=== PATIENT | female | born 1980 | race Hispanic/Latino ===

== ENCOUNTER 2019-12-24 12:38 | Emergency (ER) | payer SELFPAY ==
[2019-12-24 13:17] LABS: Absolute Lymphocytes (CBC) 1.8 K/uL (0.7-4.9); Basophils % 0.4 % (0-1.3); Lymphocytes % 24.2 % (15.3-44.8); MPV 8.1 fL (7.6-11.3)
[2019-12-24] MEDS ORDERED: NA CHLORIDE 0.9% 1,000 ML ONE (13:23)
[2019-12-24 13:33] LABS: ALT/SGPT 26 U/L (12-78); AST/SGOT 21 U/L (15-37); Albumin 3.8 g/dL (3.4-5.0); Alkaline Phosphatase 75 U/L (45-117); BUN Blood Urea Nitrogen 20 mg/dL (7-18); Bicarbonate 23 mmol/L (21-32); Bilirubin Direct < 0.1 mg/dL (0-0.2); Bilirubin Total 0.4 mg/dL (0.2-1.0); Glucose Level 134 mg/dL (74-106); Lipase 148 U/L (73-393); Potassium 3.8 mmol/L (3.5-5.1); Sodium Level 141 mmol/L (136-145)
--- NOTE | 2019-12-24 13:45 | RAD REPORT ---
EXAM DESCRIPTION: US - Abdomen Exam Limited - 12/24/2019 1:24 pm CLINICAL HISTORY: ABD PAIN COMPARISON: No comparisons FINDINGS: Multiple large gallstones are present within a normal-sized gallbladder. No wall thickenin g or pericholecystic fluid. No common duct stone or biliary tree dilatation identified. IMPRESSION: Multi stone cholelithiasis without other findings of acute gallbladder or biliary tree d isease.
[2019-12-24] MEDS ORDERED: ONDANSETRON 4 MG/2 ML VIAL ONE (13:47)
[2019-12-24] MEDS ORDERED: MORPHINE 4 MG/ML SYR ONE (13:47)
[2019-12-24] MEDS ORDERED: FAMOTIDINE 20 MG/2 ML VIAL IV ONE (13:48)
--- NOTE | 2019-12-24 13:59 | ER ---
Nurse's Notes [facility] Name: Mikayla Ervin Age: 39 yrs Sex: Female : 1980 Arrival Date: 12/24/2019 Time: 12:40 Bed 23 Private MD: Diagnosis: Cholelithiasis Presentation: 12/23 12:53 Chief complaint: Patient states: sharp, epigastric pain that radiates towards back that ss began this morning. Similar episode has occurred before and was told in the past it was gastritis. This is the worse the pain has ever been. Coronavirus screen: Client denies travel out of the [place] in the last 14 days. At this time, the client does not indicate any symptoms associated with coronavirus-19. Ebola Screen: Patient denies exposure to infectious person. Patient denies travel to an Ebola-affected area in the 21 days before illness onset. Initial Sepsis Screen: Does the patient meet any 2 criteria? No. Patient's initial sepsis screen is negative. Does the patient have a suspected source of infection? No. Patient's initial sepsis screen is negative. Risk Assessment: Do you want to hurt yourself or someone else? Patient reports no desire to harm self or others. Onset of symptoms was December 24, 2019. 12:53 Method Of Arrival: Ambulatory ss 12:53 Acuity: BRADLEY 3 ss Triage Assessment: 12:45 General: Appears uncomfortable, Behavior is cooperative. ls4 12:45 Pain: Complains of pain in epigastric area Pain radiates to back Pain currently is 9 ls4 out of 10 on a pain scale. Quality of pain is described as crampy. GI: Abdomen is non-distended, obese, Last BM was December 24, 2019. Last meal was December 24, 2019. Bowel sounds present X 4 quads. Abd is soft and non tender X 4 quads. Abdomen is tender to palpation in epigastric area Abdomen has rebound tenderness Reports Patient currently denies diarrhea, intolerance of fluids, intolerance of food, nausea, vomiting. Historical: - Allergies: 12:57 No Known Allergies; ss - Home Meds: 12:57 None [Active]; ss - PMHx: 12:57 None; ss - PSHx: 12:57 Hysterectomy; ss - Immunization history:: Adult Immunizations up to date. - Social history:: Smoking status: Patient denies any tobacco usage or history of. Screenin:45 Abuse screen: Denies threats or abuse. Denies injuries from another. Nutritional ls4 screening: No deficits noted. Tuberculosis screening: No symptoms or risk factors identified. Fall Risk None identified. Vital Signs: 12:53 BP 157 / 91; Pulse 71; Resp 20; Temp 97.8(TE); Pulse Ox 100% on R/A; Weight 91.17 kg; ss Height 5 ft. 1 in. (154.94 cm); Pain 10/10; 12:53 Body Mass Index 37.98 (91.17 kg, 154.94 cm) ss ED Course: 12:40 Patient arrived in ED. mr 12:43 Leonela Ball, [facility]. kb 12:43 Mario Genao MD is Attending Physician. kb 12:45 Patient has correct armband on for positive identification. Bed in low position. Call ls4 light in reach. Side rails up X 1. warehouse driver on. Pulse ox on. NIBP on. Warm blanket given. Verbal reassurance given. Diet: Patient is NPO. 12:56 Triage completed. ss 12:57 Arm band placed on right wrist. ss 13:15 No provider procedures requiring assistance completed. Initial lab(s) drawn, by ar, ls4 sent to lab. Urine collected: clean catch specimen, cloudy. Inserted saline lock: 20 gauge in left antecubital area, using aseptic technique. Blood collected. Patient maintains SpO2 saturation greater than 95% on room air. 13:24 US Abdomen Limited In Process Unspecified. EDMS 13:32 Darya Pulido, RN is Primary Nurse. ls4 13:33 Basic Metabolic Panel Sent. ls4 Administered Medications: 13:43 Drug: morphine 4 mg Route: IVP; Site: left antecubital; ls4 13:43 Drug: Zofran (Ondansetron) 4 mg Route: IVP; Site: left antecubital; ls4 13:43 Drug: NS 0.9% 1000 ml Route: IV; Rate: 1000 ml; Site: left antecubital; ls4 13:43 Drug: Pepcid 20 mg Route: IVP; Site: left antecubital; ls4 Outcome: 13:58 Discharge ordered by . kb 14:24 Patient left the ED. ls4 Signatures: Dispatcher [employer] Leonela Hernandez, WEB SITE DESIGNER-C WEB SITE DESIGNER-Kassy Cox mr Marie Andres, RN RN Darya Murdock RN RN ls4
--- NOTE | 2019-12-24 13:59 | EDPHYS ---
Physician Documentation [facility] Name: [facility] Sarikafrank Valero Age: 39 yrs Sex: Female : 1980 Arrival Date: 12/24/2019 Time: 12:40 Bed 23 Private MD: GAYE Physician Mario Genao HPI: 12/23 13:56 This 39 yrs old Female presents to ER via Ambulatory with complaints of kb Abdominal Pain, Back Pain. 13:56 The patient presents with abdominal pain in the epigastric area. Onset: The kb symptoms/episode began/occurred this morning. The symptoms radiate to back. Associated signs and symptoms: none. The symptoms are described as constant. Modifying factors: The symptoms are alleviated by nothing, the symptoms are aggravated by food. Severity of pain: At its worst the pain was moderate in the emergency department the pain is unchanged. The patient has experienced similar episodes in the past, a few times. The patient has not recently seen a physician. Pt reports upper abd pain that radiates to her back. STates she has had it a few times in the past and the [facility] told her it was gastritis. . Historical: - Allergies: 12:57 No Known Allergies; ss - Home Meds: 12:57 None [Active]; ss - PMHx: 12:57 None; ss - PSHx: 12:57 Hysterectomy; ss - Immunization history:: Adult Immunizations up to date. - Social history:: Smoking status: Patient denies any tobacco usage or history of. ROS: 13:56 Constitutional: Negative for fever, chills, and weight loss, Cardiovascular: Negative kb for chest pain, palpitations, and edema, Respiratory: Negative for shortness of breath, cough, wheezing, and pleuritic chest pain, Back: Negative for injury and pain, MS/Extremity: Negative for injury and deformity, Skin: Negative for injury, rash, and discoloration, Neuro: Negative for headache, weakness, numbness, tingling, and seizure. 13:56 Abdomen/GI: Positive for abdominal pain, Negative for nausea, vomiting, and diarrhea. Exam: 13:56 Constitutional: This is a well developed, well nourished patient who is awake, alert, kb and in no acute distress. Head/Face: Normocephalic, atraumatic. Chest/axilla: Normal chest wall appearance and motion. Nontender with no deformity. No lesions are appreciated. Cardiovascular: Regular rate and rhythm with a normal S1 and S2. No gallops, murmurs, or rubs. Normal PMI, no JVD. No pulse deficits. Respiratory: Lungs have equal breath sounds bilaterally, clear to auscultation and percussion. No rales, rhonchi or wheezes noted. No increased work of breathing, no retractions or nasal flaring. Back: No spinal tenderness. No costovertebral tenderness. Full range of motion. Skin: Warm, dry with normal turgor. Normal color with no rashes, no lesions, and no evidence of cellulitis. MS/ Extremity: Pulses equal, no cyanosis. Neurovascular intact. Full, normal range of motion. Neuro: Awake and alert, GCS 15, oriented to person, place, time, and situation. Cranial nerves II-XII grossly intact. Motor strength 5/5 in all extremities. Sensory grossly intact. Cerebellar exam normal. Normal gait. 13:56 Abdomen/GI: Inspection: abdomen appears normal, Bowel sounds: normal, in all quadrants, Palpation: soft, in all quadrants, moderate abdominal tenderness, in the right upper quadrant. Vital Signs: 12:53 BP 157 / 91; Pulse 71; Resp 20; Temp 97.8(TE); Pulse Ox 100% on R/A; Weight 91.17 kg; ss Height 5 ft. 1 in. (154.94 cm); Pain 10/10; 12:53 Body Mass Index 37.98 (91.17 kg, 154.94 cm) ss MDM: 12:43 Patient medically screened. kb 13:55 Data reviewed: vital signs, nurses notes. Data interpreted: Pulse oximetry: on room air kb is 100 %. Interpretation: normal. Counseling: I had a detailed discussion with the patient and/or guardian regarding: the historical points, exam findings, and any diagnostic results supporting the discharge/admit diagnosis, lab results, radiology results, the need for outpatient follow up, a general surgeon, a family development specialist, to return to the emergency department if symptoms worsen or persist or if there are any questions or concerns that arise at home. 12/23 12:50 Order name: Basic Metabolic Panel kb 12/23 12:50 Order name: CBC with Diff; Complete Time: 13:22 kb 12/23 12:50 Order name: Hepatic Function; Complete Time: 13:33 kb 12/23 12:50 Order name: Lipase; Complete Time: 13:33 kb 12/23 12:51 Order name: Basic Metabolic Panel; Complete Time: 13:33 EDMS 12/23 13:58 Order name: Urine Dipstick--Ancillary (enter results) eb 12/23 12:50 Order name: IV Saline Lock; Complete Time: 13:33 kb 12/23 12:50 Order name: Labs collected and sent; Complete Time: 13:33 kb 12/23 12:50 Order name: US Abdomen Limited; Complete Time: 13:47 kb 12/23 13:58 Order name: Urine --Ancillary (enter results) eb Administered Medications: 13:43 Drug: morphine 4 mg Route: IVP; Site: left antecubital; ls4 13:43 Drug: Zofran (Ondansetron) 4 mg Route: IVP; Site: left antecubital; ls4 13:43 Drug: NS 0.9% 1000 ml Route: IV; Rate: 1000 ml; Site: left antecubital; ls4 13:43 Drug: Pepcid 20 mg Route: IVP; Site: left antecubital; ls4 Disposition: 12/24 10:52 Co-signature as Attending Physician, Mario Genao MD I agree with the assessment and elias plan of care. Disposition: 12/24/19 13:58 Discharged to Home. Impression: Cholelithiasis. - Condition is Stable. - Discharge Instructions: Cholelithiasis, [id number]. - Prescriptions for Bentyl 20 mg Oral Tablet - take 1 tablet by ORAL route every 6 hours As needed; 20 tablet. Zofran 4 mg Oral Tablet - take 1 tablet by ORAL route every 6 hours As needed; 20 tablet. Diclofenac Sodium 75 mg Oral Tablet, Delayed Release (E.C.) - take 1 tablet by ORAL route 2 times per day As needed; 30 tablet. - Medication Reconciliation Form, Thank You Letter, Antibiotic Education, Prescription Opioid Use form. - Follow up: Emergency Department; When: As needed; Reason: Worsening of condition. Follow up: Private Physician; When: 2 - 3 days; Reason: Recheck today's complaints, Continuance of care, Re-evaluation by your physician. Signatures: Dispatcher [employer] Leonela Hernandez, WEB MARKETING COORDINATOR-C WEB MARKETING COORDINATOR-Ckb Mario Genao MD MD cha Smirch, Shelby, RN RN ss Darya Pulido, RN RN ls4 Corrections: (The following items were deleted from the chart) 12/23 14:24 13:58 12/24/2019 13:58 Discharged to Home. Impression: Cholelithiasis. Condition is ls4 Stable. Forms are Medication Reconciliation Form, Thank You Letter, Antibiotic Education, Prescription Opioid Use. Follow up: Emergency Department; When: As needed; Reason: Worsening of condition. Follow up: Private Physician; When: 2 - 3 days; Reason: Recheck today's complaints, Continuance of care, Re-evaluation by your physician. kb
[2019-12-24 14:36] VITALS: BP 157/91; TEMP 97.8; O2SAT 100
[2019-12-24 14:47] LABS: Urine Blood 2+ (NEG); Urine Glucose NEGATIVE (NEG); Urine Protein TRACE (NEG)
== END 2019-12-24 14:24 | disposition home or self-care (01) ==
LOC: ER 12:38
DX: K80.20 Calculus of gallbladder without cholecystitis without obstruction (principal)
CPT/HCPCS: 36415; 76705; 80048; 80076; 81003; 81025; 83690; 85025; 96374; 96375; 99285; J2405; J7030

== ENCOUNTER 2020-04-22 13:12 | Inpatient (IN) | payer SELFPAY ==
--- OUTSIDE RECORDS SUMMARY | 2020-04-22 13:14 | XMS REPORT | Continuity of Care Document ---
:1980 Author Organization [facility] t Address [address] [place] [address] Care Team Providers Name Role Phone Kassy Whitaker RN Attending Clinician Gautam Stauffer Attending Clinician Shant Attending Clinician Banipamode Morrical DO Attending Clinician Shante EISENBERG R Attending Clinician Lab, Fam Pob I Attending Clinician Unavailable Shante EISENBERG, R Admitting Clinician Payers Payer Name Policy Type Policy Number Effective Date Expiration Date S ource Problems This patient has no known problems. Allergies, Adverse Reactions, Alerts Allergy Allergy Status Severity Reaction(s) Onset Inactive Treating Comm ents Source Name Type Date Date Clinician No Known DA Active [facility] Allergie 4-20 Clear s 00:00: [place] 00 [facility] Medications This patient has no known medications. Procedures This patient has no known procedures. Encounters Start End Encounter Admission Attending Care Care Encounter Source Date/Time Date/Time Type Type Clinicians Facility Department ID 2020-02-02 2020-02-02 Patient Kassy Whitaker [id number] 00:00:00 00:00:00 Outreach E Ochoa [id number] [place] [id number] 2020-01-04 2020-01-04 Patient Donna Stauffer [id number] 00:00:00 00:00:00 Outreach Thao E Ochoa [id number] [place] [id number] 2019-12-31 2019-12-31 Transition BranDonna sims [id number] 00:00:00 00:00:00 of Care Lakesha Ochoa [id number] [place] [id number] 2019-12-30 2019-12-30 Transition Donna Bran [id number] 00:00:00 00:00:00 of Care Lakesha Ochoa [id number] [place] [id number] 2019-12-25 2019-12-28 Hospital Kelin Curry [id number] 13:12:00 14:45:00 Encounter Zheng Frey [id number] [facility] [id number] 2019-10-10 2019-10-10 Work Checker Lab, [facility] [id number] 14:00:41 14:20:41 Visit [facility] [id number] [place] [id number] Professio [phone] [address]al [address] One Results This patient has no known results.
--- OUTSIDE RECORDS SUMMARY | 2020-04-22 13:14 | XMS REPORT | Summary of Care ---
:1980 Author Organization [facility] - [address] [address] Care Team Providers Name Role Phone Pcp, Patient Does Not Have A Primary Care Provider +[id number] 0-0000 Pcp, Does Not Have A Unavailable Pcp, Does Not Have A Insurance Hmo Reason for Visit Reason Comments Referral/consult [facility] Referral Encounter Details Date Type Department Care Team Description 02/02/2020 Patient Outreach [facility] Kassy Whitaker RN Referral/consult [address] ([facility] Refer ral) [place], [place] [address] Allergies No Known Allergiesdocumented as of this encounter (statuses as of 02/02/2020) Medications Medication Sig Dispensed Refills Start Date End Date Status CALCIUM Take by mouth. 0 Acti ve CARBONATE/VITAMIN D2 (CALCIUM + VITAMIN D ORAL) acetaminophen-codeine Take 1 tablet by 10 tablet 0 01/17/2017 Active (TYLENOL-CODEINE #3) mouth every 8 300-30 mg tablet (eight) hours. ondansetron (ZOFRAN Take 1 tablet by 40 tablet 0 12/28/2019 Active ODT) 4 mg mouth every 8 disintegrating (eight) hours as tabletIndications: needed for Nausea Abdominal pain, and Vomiting unspecified abdominal (N/V). location, Transaminitis, Cholelithiasis without cholecystitis acetaminophen (TYLENOL Take 1 tablet by 40 tablet 0 12/28/2019 Active 8 HOUR) 650 mg CR mouth every 8 tabletIndications: (eight) hours as Abdominal pain, needed for Pain. unspecified abdominal location, Transaminitis, Cholelithiasis without cholecystitis Hospital, Clinic, or Other Ordered Dose Route Frequency Start Date End Date Status Facility Administered Medication medroxyPROGESTERone 150 mg IM [id number] 01/25/2017 Active (DEPO-PROVERA) injection 150 mgIndications: Depo-Provera contraceptive status documented as of this encounter (statuses as of 02/02/2020) Active Problems Problem Noted Date Transaminitis 12/28/2019 Cholelithiasis without cholecystitis 12/25/2019 Pain of upper abdomen 12/25/2019 Nausea 12/25/2019 Screen for STD (sexually transmitted disease) 01/26/20 17 Obesity (BMI 30-39.9) 01/25/2017 Nevus of female breast 11/04/2015 General counseling and advice for contraceptive manage ment 11/04/2014 Overview: ICD10 Diagnosis Term Roll Trucker Utility Excessive or frequent menstruation 07/30/2012 Well woman exam 07/30/2012 Congenital anomaly of uterus Overview: ICD10 Diagnosis Term Roll Trucker Utility documented as of this encounter (statuses as of 02/02/2020) Resolved Problems Problem Noted Date Resolved Date Obesity 11/04/2014 01/25/2017 Overview: ICD10 Diagnosis Term Roll Trucker Utility delivery delivered 06/04/2007 07/30/2012 Overview: ICD10 Diagnosis Term Roll Trucker Utility Morbid obesity 01/25/2017 Supervision of other high-risk 07/30/2012 Overview: ICD10 Diagnosis Term Roll Trucker Utility Previous delivery, antepartum condition or complica tion 07/30/2012 documented as of this encounter (statuses as of 02/02/2020) Social History Tobacco Use Types Packs/Day Years Used Date Never Smoker Smokeless Tobacco: Never Used Alcohol Use Drinks/Week oz/Week Comments No Education Answer Date Recorded What is the highest level of school you have completed or th e 6th grade 12/25/2019 highest degree you have received? Financial Resource Strain Answer Date Recorded How hard is it for you to pay for the very basics like Not h glenny at all 12/25/2019 food, housing, medical care, and heating? Food Insecurity Answer Date Recorded Within the past 12 months, you worried that your food would Never true 12/25/2019 run out before you got money to buy more. Within the past 12 months, the food you bought just didn't N ever true 12/25/2019 last and you didn't have money to get more. Sex Assigned at Date Recorded Not on file documented as of this encounter Last Filed Vital Signs Not on filedocumented in this encounter Progress Notes Kassy Whitaker RN - 02/02/2020 1:28 PM CDTCHP Referral 39 year old female with no pertinent PMH admitted for worsening abdominal pain. Found to have elevated liver enzymes. Evaluated by general surgery, determined stable for an elective outpatient cholecystitis. Pt was seen by GI, and MRCP showed cholelithiasis with no evidence of choledocholithiasis. Patient LFTs down trending, will f/u GI outpatient. Patient. Voices that she needs education on diagnosis and medical resources for future. Pt. Agreed to participate in [facility]. Thank you, Lakesha Bran. CHARGING CAR OPERATOR [facility]P CHW attempted to contact patient re: [facility]P enrollment; not able to contact patient. DHARA Flores, RN, [facility] Outpatient Cap Parts CutterCutting Table Operator [facility] O: [phone] M: [phone] documented in this encounter Plan of Treatment Health Maintenance Due Date Last Done Comments Depression Screening 1990 DTaP,Tdap,and Td Vaccines 1997 (1 - Tdap) Breast Cancer Screening 2018 (MAMMOGRAM) PAP SMEAR 11/03/2018 11/04/2015, 07/30/2012, 10/22/2008, Additional history exists INFLUENZA VACCINE (#1) 2020 PNEUMOCOCCAL 0-64 YEARS Aged Out No longe r eligible COMBINED SERIES based on patient 's age to complete this topic documented as of this encounter Results Not on filedocumented in this encounter Insurance Payer Benefit Plan / Subscriber ID Effective Dates Phone Addre ss Type Group [facility] FAMILY FAMILY PLANNING [id number] 2017-[employer] PLANNING JOSE GUADALUPE JOSE [place]UPE [phone] nt [id number] [place] [address] documented as of this encounter Advance Directives Type Date Recorded 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
[2020-04-22] MEDS ORDERED: ONDANSETRON 4 MG/2 ML VIAL ONE (15:32)
[2020-04-22] MEDS ORDERED: NA CHLORIDE 0.9% 1,000 ML ONE (15:32)
--- NOTE | 2020-04-22 15:38 | ER ---
Nurse's Notes [facility] Name: Mikayla Ervin Age: 39 yrs Sex: Female : 1980 Arrival Date: 04/22/2020 Time: 13:14 Bed 13 Private MD: Diagnosis: Cholelithiasis Presentation: 04/22 13:40 Chief complaint: Pt's daughter states "she saw Dr. Comer for her gallbladder today aa5 and told her to come here for surgery because he's field education director today; she was supposed to have the surgery on Saturday". Last meal was today at 1100. Pt reports nausea and vomiting, reports RUQ pain. Pt also reports headache. Pt reports she is currently taking Amoxicillin, clarithromycin, and omeprazole "for a bacteria that they found in my stomach". 13:40 Coronavirus screen: Client denies travel out of the [place] in the last 14 days. headache. aa5 Ebola Screen: Patient negative for fever greater than or equal to 101.5 degrees Fahrenheit, and additional compatible Ebola Virus Disease symptoms. Initial Sepsis Screen: Does the patient meet any 2 criteria? No. Patient's initial sepsis screen is negative. Does the patient have a suspected source of infection? No. Patient's initial sepsis screen is negative. Risk Assessment: Do you want to hurt yourself or someone else? Patient reports no desire to harm self or others. Onset of symptoms was April 2020. 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 - Social history:: Smoking status: Patient denies any tobacco usage or history of. Screenin:30 Abuse screen: Denies threats or abuse. Denies injuries from another. Nutritional sv screening: No deficits noted. Tuberculosis screening: No symptoms or risk factors identified. Fall Risk None identified. Assessment: 15:25 General: Appears in no apparent distress. uncomfortable, well groomed, well developed, sv Behavior is calm, cooperative, appropriate for age. Pain: Complains of pain in epigastric area Pain currently is 10 out of 10 on a pain scale. Neuro: Level of Consciousness is awake, alert, obeys commands, Oriented to person, place, time, situation, Moves all extremities. Full function Gait is steady. Respiratory: Respiratory effort is even, unlabored, Respiratory pattern is regular, symmetrical. GI: Abdomen is obese, Reports nausea. Derm: Skin is pink, warm \\T\\ dry. 16:43 Reassessment: Patient appears in no apparent distress at this time. No changes from sv previously documented assessment. Patient and/or family updated on plan of care and expected duration. Pain level reassessed. Patient is alert, oriented x 3, equal unlabored respirations, skin warm/dry/pink. 17:41 Reassessment: Patient appears in no apparent distress at this time. Patient and/or sv family updated on plan of care and expected duration. Pain level reassessed. Patient is alert, oriented x 3, equal unlabored respirations, skin warm/dry/pink. Patient states symptoms have improved. Vital Signs: 13:42 BP 145 / 100; Pulse 67; Resp 18 S; Temp 98.5(O); Pulse Ox 100% on R/A; Weight 95.25 kg aa5 (R); Height 5 ft. 4 in. (162.56 cm) (R); Pain 10/10; 17:43 BP 120 / 77; Pulse 63; Resp 16; Pulse Ox 100% ; sv 13:42 Body Mass Index 36.05 (95.25 kg, 162.56 cm) aa5 ED Course: 13:14 Patient arrived in ED. rg4 13:25 Mario Caceres PA is PHCP. cp 13:25 Telly Trotter MD is Attending Physician. cp 13:26 Telly Trotter MD is Attending Physician. cp 13:40 Arm band placed on. aa5 13:53 Triage completed. aa5 15:12 Oriana Santos, KATHARINE is Primary Nurse. sv 15:30 Patient has correct armband on for positive identification. Placed in gown. Bed in low sv position. Call light in reach. Adult w/ patient. Door closed. Warm blanket given. Head of bed elevated. 15:30 Inserted saline lock: 22 gauge in left forearm, using aseptic technique. ,using aseptic sv technique. diffusics Flushed left forearm with 5 ml normal saline. 15:37 Jose Comer MD is Hospitalizing Provider. cp 16:43 COVID swab sent to lab. sv 16:44 COVID-19: in house testing please Sent. sv 16:56 Awaiting bed assignment. sv 17:35 CORONAVIRUS Sent. sv 17:41 No provider procedures requiring assistance completed. Patient admitted, IV remains in sv place. intact. Administered Medications: 15:37 Drug: NS 0.9% 1000 ml Route: IV; Rate: 125 ml/hr; Site: left forearm; sv 17:44 Follow up: Response: No adverse reaction; IV Status: Infusion continued upon admission sv 15:37 Drug: Zofran (Ondansetron) 4 mg Route: IVP; Site: left forearm; sv 16:15 Follow up: Response: No adverse reaction sv 15:59 CANCELLED (Physician Discretion): morphine 2 mg IVP once; (PAIN>8) RASS on ADMN: cp Combtv4, Very Agttd3, Agttd2, Rstlss1, AlertClm0, Drwsy-1, LtSdtn-2, ModSdtn-3, DpSdtn-4, UnArsble-5 x2 16:14 Drug: Diazepam 5 mg Route: PO; sv 17:35 Follow up: Response: No adverse reaction sv 16:15 Drug: morphine 4 mg {Note: rass1.} Route: IVP; Site: left forearm; sv 17:35 Follow up: Response: No adverse reaction; Pain is decreased; RASS: Alert and Calm (0) sv Outcome: 15:37 Decision to Hospitalize by Provider. cp 17:41 Admitted to Med/surg accompanied by tech, family with patient, via wheelchair, room sv 215, with chart, Report called to MECCA RN 17:41 Condition: stable 17:41 Instructed on the need for admit. 17:53 Patient left the ED. sv Signatures: Oriana Santos RN RN Susan Skelton RN RN aa5 Mario Caceres PA PA cp Garcia, Rubi rg4 Corrections: (The following items were deleted from the chart) 13:53 13:47 Chief complaint: Pt's daughter states "she saw Dr. Comer for her gallbladder aa5 today and told her to come here for surgery because he's field education director today; she was supposed to have the surgery on Saturday". Last meal was today at 1100. Pt reports nausea and vomiting, reports RUQ pain. Pt also reports headache. aa5 17:42 17:41 Admitted to Med/surg accompanied by daisy, family with patient, via wheelchair, sv room 217, with chart, Report called to MECCA eric
--- NOTE | 2020-04-22 15:38 | EDPHYS ---
Physician Documentation [facility] Name: [facility] Sarikafrank Valero Age: 39 yrs Sex: Female : 1980 Arrival Date: 04/22/2020 Time: 13:14 Bed 13 Private MD: ED Physician Telly Trotter HPI: 04/22 15:22 This 39 yrs old Female presents to ER via Ambulatory with complaints of cp Abdominal Pain. 15:22 The patient presents with abdominal pain in the epigastric area, in the right upper cp quadrant. Onset: The symptoms/episode began/occurred gradually, and became worse today. Associated signs and symptoms: Pertinent positives: nausea. Severity of pain: in the emergency department the pain is unchanged despite home interventions. POSTIE: 15:25 LMP N/A - Hysterectomy sv Historical: - Allergies: 13:40 No Known Allergies; aa5 - PMHx: 13:40 None; aa5 - PSHx: 13:40 Hysterectomy; aa5 - Immunization history:: Adult Immunizations unknown. - Social history:: Smoking status: Patient denies any tobacco usage or history of. ROS: 15:24 Eyes: Negative for injury, pain, redness, and discharge. cp 15:24 Constitutional: Negative for fever, poor PO intake. 15:24 ENT: Negative for ear pain, sore throat, difficulty swallowing, difficulty handling secretions. 15:24 Respiratory: Negative for cough, shortness of breath, wheezing. 15:24 Abdomen/GI: Positive for abdominal pain, nausea, of the epigastric area and right upper quadrant, Negative for vomiting, diarrhea, constipation. 15:24 Neuro: Negative for altered mental status, headache, weakness. 15:24 All other systems are negative. Exam: 15:30 Constitutional: The patient appears in no acute distress, alert, awake, non-toxic, well cp developed, well nourished, uncomfortable. 15:30 Head/Face: Normocephalic, atraumatic. cp 15:30 Eyes: Periorbital structures: appear normal, Conjunctiva: normal, no exudate, no injection, Sclera: no appreciated abnormality, Lids and lashes: appear normal, bilaterally. 15:30 ENT: External ear(s): are unremarkable, Nose: is normal, Posterior pharynx: Airway: no evidence of obstruction, patent. 15:30 Chest/axilla: Inspection: normal. 15:30 Cardiovascular: Rate: normal, Rhythm: regular. 15:30 Respiratory: the patient does not display signs of respiratory distress, Respirations: normal, no use of accessory muscles, no retractions, labored breathing, is not present, Breath sounds: are clear throughout, no decreased breath sounds. 15:30 Abdomen/GI: Inspection: abdomen appears normal, Bowel sounds: active, all quadrants, Palpation: soft, in all quadrants, moderate abdominal tenderness, in the epigastric area and right upper quadrant, rebound tenderness, is not appreciated, voluntary guarding, is elicited in the epigastric area and right upper quadrant. 15:30 Neuro: Orientation: to person, place \T\ time. Mentation: is normal. Vital Signs: 13:42 BP 145 / 100; Pulse 67; Resp 18 S; Temp 98.5(O); Pulse Ox 100% on R/A; Weight 95.25 kg aa5 (R); Height 5 ft. 4 in. (162.56 cm) (R); Pain 10/10; 17:43 BP 120 / 77; Pulse 63; Resp 16; Pulse Ox 100% ; sv 13:42 Body Mass Index 36.05 (95.25 kg, 162.56 cm) aa5 MDM: 15:08 Patient medically screened. cp 15:09 Physician consultation: Jose Comer MD was contacted at 15:09, requests patient be cp admitted to his service for cholecystectomy. 15:35 Data reviewed: vital signs, nurses notes, and as a result, I will admit patient. cp 15:35 Differential diagnosis: cholecystitis, gastritis, pancreatitis, Pyelonephritis, cp Ureterolithiasis, urinary tract infection. Counseling: I had a detailed discussion with the patient and/or guardian regarding: the historical points, exam findings, and any diagnostic results supporting the discharge/admit diagnosis, the need for further work-up and treatment in the hospital. 04/22 16:16 Order name: COVID-19: in house testing please cp 04/22 17:04 Order name: CORONAVIRUS EDMS 04/22 15:09 Order name: IV; Complete Time: 15:37 cp Administered Medications: 15:37 Drug: NS 0.9% 1000 ml Route: IV; Rate: 125 ml/hr; Site: left forearm; sv 17:44 Follow up: Response: No adverse reaction; IV Status: Infusion continued upon admission sv 15:37 Drug: Zofran (Ondansetron) 4 mg Route: IVP; Site: left forearm; sv 16:15 Follow up: Response: No adverse reaction sv 15:59 CANCELLED (Physician Discretion): morphine 2 mg IVP once; (PAIN>8) RASS on ADMN: cp Combtv4, Very Agttd3, Agttd2, Rstlss1, AlertClm0, Drwsy-1, LtSdtn-2, ModSdtn-3, DpSdtn-4, UnArsble-5 x2 16:14 Drug: Diazepam 5 mg Route: PO; sv 17:35 Follow up: Response: No adverse reaction sv 16:15 Drug: morphine 4 mg {Note: rass1.} Route: IVP; Site: left forearm; sv 17:35 Follow up: Response: No adverse reaction; Pain is decreased; RASS: Alert and Calm (0) sv Disposition: 18:29 Co-signature as Attending Physician, Telly Trotter MD I agree with the assessment and kdr plan of care. Disposition: 20 15:37 Hospitalization ordered by Jose Comer for Observation. Preliminary diagnosis is Cholelithiasis. - Bed requested for Telemetry/MedSurg (observation). - Status is Observation. sv - Condition is Stable. - Problem is an ongoing problem. - Symptoms have improved. Signatures: Dispatcher [employer] Oriana Raman RN RN Abbie Junior RN RN dw Rittger, Kevin, MD MD [facility] Susan Skelton RN RN aa5 Mario Caceres PA PA cp Corrections: (The following items were deleted from the chart) 15:13 15:09 Urine Test ordered. cp sv 15:14 15:09 Urine Dipstick-Ancillary ordered. cp sv 15:59 15:55 morphine 2 mg IVP once; (PAIN>8) RASS on ADMN: Combtv4, Very Agttd3, Agttd2, cp Rstlss1, AlertClm0, Drwsy-1, LtSdtn-2, ModSdtn-3, DpSdtn-4, UnArsble-5 x2 ordered. cp 17:09 15:37 Hospitalization Ordered by Jose Comer MD for Observation. Preliminary dw diagnosis is Cholelithiasis. Bed requested for Telemetry/MedSurg (observation). Status is Observation. Condition is Stable. Problem is an ongoing problem. Symptoms have improved. cp 17:53 17:09 04/22/2020 15:37 Hospitalization Ordered by Jose Comer MD for Observation. sv Preliminary diagnosis is Cholelithiasis. Bed requested for Telemetry/MedSurg (observation). Status is Observation. Condition is Stable. Problem is an ongoing problem. Symptoms have improved. dw
[2020-04-22] MEDS ORDERED: ACETAMINOPHEN 500 MG TAB PO PRN (16:05)
[2020-04-22] MEDS ORDERED: MORPHINE 4 MG/ML SYR IV PRN (16:05)
[2020-04-22] MEDS ORDERED: DIAZEPAM 5 MG TABLET PO PRN (16:07)
[2020-04-22] MEDS ORDERED: DIAZEPAM 5 MG TABLET ONE (16:20)
[2020-04-22] MEDS ORDERED: MORPHINE 4 MG/ML SYR ONE (16:20)
[2020-04-22 18:27] VITALS: BMI 35.2
[2020-04-22] MEDS ORDERED: ONDANSETRON 4 MG/2 ML VIAL IV PRN (19:34)
[2020-04-22] MEDS: D5.45NS W/KCL 20MEQ 20 MEQ/1,000 ML BAG IV SCH (20:20)
[2020-04-23] MEDS: D5.45NS W/KCL 20MEQ 20 MEQ/1,000 ML BAG IV SCH ×4 (05:06→20:00)
[2020-04-23 05:46] LABS: Absolute Lymphocytes (CBC) 1.5 K/uL (0.7-4.9); Basophils % 0.7 % (0-1.3); Lymphocytes % 25.2 % (15.3-44.8); MPV 7.6 fL (7.6-11.3); RBC Red Blood Cell Count 4.51 M/uL (3.86-4.86)
[2020-04-23 06:04] LABS: ALT/SGPT 24 U/L (12-78); AST/SGOT 15 U/L (15-37); Albumin 3.1 g/dL (3.4-5.0); Alkaline Phosphatase 78 U/L (45-117); BUN Blood Urea Nitrogen 12 mg/dL (7-18); Bicarbonate 26 mmol/L (21-32); Bilirubin Direct < 0.1 mg/dL (0-0.2); Bilirubin Total 0.3 mg/dL (0.2-1.0); Glucose Level 126 mg/dL (74-106); Lipase 163 U/L (73-393); Potassium 3.9 mmol/L (3.5-5.1); Protein, Total 7.1 g/dL (6.4-8.2); Sodium Level 141 mmol/L (136-145)
--- NOTE | 2020-04-23 08:06 | P.HP ---
Date of Service: 04/22/20 PC: This 39-year-old female presented with severe right upper quadrant abdominal pain to the ER. HPC: I see the patient in my office. She was actually going to have her surgery scheduled at another facility. On her drive there she experienced severe right upper quadrant abdominal pain, radiating into her back, the were she is ever had. She could barely sit in her car. When she arrived at the other facility they recommended that she go back to the emergency room for evaluation. She was able to get comfortable in the ER with some pain medicine, has been admitted, and will be taken to the operating room in the morning for laparoscopic cholecystectomy and cholangiogram. PMH: Otherwise healthy female PSHx: Previous hysterectomy SOC: No known allergies SYS REVIEW: No cough, wheeze, shortness of breath. No chest pain or palpitations. No urinary complaints O/E awake alert comfortable at the moment HEENT: The tear Chest: Chest movement equal bilaterally ABD: Mild right upper quadrant tenderness LOCO: Intact DATA: Has documented gallstones IMPRESSION: Cholecystitis with cholelithiasis, biliary colic PLAN: I will take her the operating room for laparoscopic possible open cholecystectomy. The risks of this procedure have been discussed. The possibility of bleeding, infection, injury to bile ducts blood vessels intestines has been described. The possible need for an open and/or further surgeries and procedures was discussed. She understands and wants us to proceed.
[2020-04-23] MEDS ORDERED: Ringers Lactate 1,000 ML IV ONE (08:53)
[2020-04-23] MEDS ORDERED: CEFOXITIN/SWI 1gm 1 GM/10 ML SYR ONE (09:21)
[2020-04-23] MEDS ORDERED: propofoL 200 MG/20 ML VIAL IV ONE (09:51)
[2020-04-23] MEDS ORDERED: ROCURONIUM 50 MG/5 ML VIAL IV ONE ×2 (09:52→10:59)
[2020-04-23] MEDS ORDERED: FENTANYL CITR 100 MCG/2 ML ONE (09:52)
[2020-04-23] MEDS ORDERED: LIDOCAINE 2% MPF 5 ML VIAL ONE (09:52)
[2020-04-23] MEDS ORDERED: dexAMETHasone 10 MG/ML VIAL ONE (10:50)
[2020-04-23] MEDS ORDERED: KETOROLAC 30 MG/ML INJ ONE (10:50)
[2020-04-23] MEDS ORDERED: ONDANSETRON 4 MG/2 ML VIAL ONE (10:51)
[2020-04-23] MEDS ORDERED: GLYCOPYRROLATE 0.2 MG/ML SYR ONE (11:04)
[2020-04-23] MEDS ORDERED: NEOSTIGMINE 1 MG/ML -5 ML ONE (11:05)
--- NOTE | 2020-04-23 11:30 | P.OP ---
Preoperative diagnosis: Cholecystitis with cholelithiasis, biliary colic Postoperative diagnosis: The same Primary procedure: Laparoscopic cholecystectomy Secondary procedure: Cholangiogram Other procedure(s): Nury blocked Anesthesia: General Estimated blood loss: Less than 10 cc Specimen: 1 gallbladder and contents Findings: Distended chronically inflamed gallbladder Operative Technique: The patient was brought to the operating room placed supine on the table. After the induction of adequate general endotracheal anesthesia, the area of the abdomen was prepped with a DuraPrep solution, and draped in the usual aseptic manner. A subumbilical incision was made. This brought down through the skin and subcutaneous tissue. The Visiport was used to enter the peritoneal cavity and created pneumoperitoneum to approximately 12 mm of mercury. Under direct vision a 5 mm trocar was placed in the upper midline, and 2 other 5 mm trocars on the right lateral side. The patient's head was then elevated and rolled towards the finishing room operator's side. We could see a distended and chronically inflamed gallbladder. There were adhesions to the serosal surface. These were taken down using blunt sharp dissection. A grasper was placed on the fundus of the gallbladder. Another 1 was placed down by Adalgisa's pouch. Applying lateral traction we were able to dissect and expose the cystic duct and artery. The artery was dealt with 1st. It was clipped and divided in the usual manner. A clip was then placed between the gallbladder and the cystic duct. An opening was made into the cystic duct. We attempted then to pass the cholangiocath into the cystic duct. The small balloon was then inflated. We obtained a cholangiogram which showed good flow contrast into the duodenum. The patient been a marked Trendelenburg breath our procedure we were not able to demonstrate the upper radicals. We did however insure that we were working on the cystic duct. Clips were now placed on the distal portion of the cystic duct. The cystic duct was then divided. The gallbladder was now dissected free from the liver bed, placed into an Endo-Catch, and brought out through the umbilical trocar site. Due to the size of the stones it was necessary to open the fascia at the level of the emboli kiss. The gallbladder fossa was inspected to ensure adequate hemostasis. It was irrigated with a saline solution and the irrigant aspirated from the peritoneal cavity. 0.25% Marcaine was aerosolized into the right upper quadrant and the gallbladder fossa. The umbilical trocar site was now approximated with an Endo Close and 3 absorbable sutures. The pneumoperitoneum was then collapsed, the suture tied, and ruba applied to the skin. A further 0.25% Marcaine was injected around are incision sites. At the end of the procedure the patient was in a stable condition when sent to the recovery room. Needle sponge instrument count were correct. 1 specimen was sent for histopathology. Transferred to: Recovery Room Condition: Good
[2020-04-23] MEDS: HYDROMORPHONE HCL 1 MG/ML INJ ONE ×2 (11:49→11:55)
[2020-04-23] MEDS ORDERED: ONDANSETRON 4 MG/2 ML VIAL IV PRN (11:58)
[2020-04-23] MEDS ORDERED: MORPHINE 4 MG/ML SYR IV PRN (11:58)
--- NOTE | 2020-04-23 12:01 | RAD REPORT ---
EXAM DESCRIPTION: RAD - Cholangiogram Oper-Xray Or - 04/23/2020 11:45 am FINDINGS: Intraoperative cholangiogram was performed with 3 portable spot images retained. Assessment is limited when only selected images are available. No duct stone, stricture or other susp icious finding identifiable. Fluoro time was 0.3 minutes. Cumulative dose was 5.95 mGy.
[2020-04-23 12:03] VITALS: O2SAT 94
[2020-04-23] MEDS: HYDROCODONE/APAP 7.5/325 MG TAB PO PRN (16:54)
[2020-04-24] MEDS: HYDROCODONE/APAP 7.5/325 MG TAB PO PRN ×3 (00:19→14:29)
[2020-04-24] MEDS: D5.45NS W/KCL 20MEQ 20 MEQ/1,000 ML BAG IV SCH ×3 (01:37→12:00)
--- NOTE | 2020-04-24 12:56 | P.DS ---
Admission Date: 04/23/20 Discharge Date: 04/24/20 Disposition: ROUTINE DISCHARGE Discharge Condition: GOOD Reason for Admission: Acute postoperative abdominal pain Procedures: Laparoscopic cholecystectomy with cholangiogram Brief History of Present Illness: Patient was being scheduled for a laparoscopic cholecystectomy and another facility. She actually had and acute attack over biliary colic. They trina mmended she go to the emergency room at our facility. She was evaluated admitted and the following day brought to the operating room for laparoscopic cholecystectomy Hospital Course: The patient underwent a laparoscopic cholecystectomy. She tolerated it well. She was admitted for observation due to postoperative abdominal pain. Today she is up ambulating, tolerating a diet, her pain is controlled on oral medications. She is deemed fit for discharge. Vital Signs/Physical Exam: Temp Pulse Resp BP Pulse Ox 98.2 F 84 18 123/68 97 04/24/20 08:00 04/24/20 08:00 04/24/20 10:04 04/24/20 08:00 04/24/20 10:04 Laboratory Data at Discharge: WBC 6.1 K/uL (4.3-10.9) 04/23/20 05:18 Hgb 14.3 g/dL (12.0-15.0) 04/23/20 05:18 Hct 41.0 % (36.0-45.0) 04/23/20 05:18 Plt Count 277 K/uL (152-406) 04/23/20 05:18 Sodium 141 mmol/L (136-145) 04/23/20 05:18 Potassium 3.9 mmol/L (3.5-5.1) 04/23/20 05:18 BUN 12 mg/dL (7-18) 04/23/20 05:18 Creatinine 0.77 mg/dL (0.55-1.3) 04/23/20 05:18 Glucose 126 mg/dL (74-106) H 04/23/20 05:18 Total Bilirubin 0.3 mg/dL (0.2-1.0) 04/23/20 05:18 AST 15 U/L (15-37) 04/23/20 05:18 ALT 24 U/L (12-78) 04/23/20 05:18 Alkaline Phosphatase 78 U/L (45-117) 04/23/20 05:18 Lipase 163 U/L (73-393) 04/23/20 05:18 Home Medications: Amoxicillin [Amoxil Cap] 250 mg PO BID 04/22/20 Clarithromycin 500 mg PO BID 04/22/20 Omeprazole 20 mg PO BID 04/22/20 Patient Discharge Instructions: Ambulated home, continue incentive spirometry. Change dressing as needed. She may shower, diet as tolerated. Milk of magnesia p.r.n. for constipation. Any questions or problems, return to the emergency room or contact me. Diet: Regular Activity: Ad hiren
[2020-04-24 14:27] VITALS: BP 113/59; TEMP 98
== END 2020-04-24 14:43 | disposition home or self-care (01) | DRG 419 ==
LOC: ER 13:12 → ERHOLD 16:04 → 2ND 17:42 → OBSVTOIN 04-23 09:31
PROVIDERS: ADMIT Surgery; ATTEND Surgery
PROC: BF121ZZ Fluoroscopy of Gallbladder using Low Osmolar Contrast (ICD-10-PCS; 2020-04-23)
PROC: 0FT44ZZ Resection of Gallbladder, Percutaneous Endoscopic Approach (ICD-10-PCS; principal; 2020-04-23 12:00)
DX: K80.10 Calculus of gallbladder with chronic cholecystitis without obstruction (principal); Z90.710 Acquired absence of both cervix and uterus; Z79.899 Other long term (current) drug therapy; Z20.828 Contact with and (suspected) exposure to other viral communicable diseases
CPT/HCPCS: 36415; 74300; 80048; 80076; 82947; 83690; 85025; 88304; 93005; 94010; 96361; 96374; 96375; 99285; J1100; J1170; J2405; J2704; J2710; J3010; J7030; J7120; U0003